=== PATIENT | female | born 1945 | race Caucasian/White ===

== ENCOUNTER → 2016-10-04 | Outpatient (CLI) | payer MEDICARE, MEDICAID ==
[~2016-10-04] MED LIST: ADVAIR 250/5028 PUFF IN; ANTIVERT GENERI25 MG PO; ASPIRIN 81MG TA81 MG PO; BACLOFEN20 MG PO; DONEPEZIL 10MG10 MG PO; ESCITALOPRAM 2020 MG PO; HYDROCHLOROTH12.5 M1 PO; IMODIUM 2MG. CAP2 MG PO; NAMENDA XR28 MG PO; OMEPRAZOLE20 MG PO; POTASSIUM CHLO20 ME2 PO; ROBAXIN-750750 MG PO; TIZANIDINE HCL 44 MG NG; TRAMADOL50 M1 PO
[2016-10-04 19:03] LABS: AEROMONAS NOT DETECTED (NOT DETECTE); CYCLOSPORA CAYETANENSIS NOT DETECTED (NOT DETECTE); E COLI O157 NOT DETECTED (NOT DETECTE); ENTEROAGGREGATIVE E COLI NOT DETECTED (NOT DETECTE); ENTEROPATHOGENIC E COLI NOT DETECTED (NOT DETECTE); ENTEROTOXIGENIC E COLI NOT DETECTED (NOT DETECTE); NOROVIRUS NOT DETECTED (NOT DETECTE); SAPOVIRUS NOT DETECTED (NOT DETECTE); SHIGA-LIKE TOXIN PROD. E COLI NOT DETECTED (NOT DETECTE); SHIGELLA/ENTEROINVASIVE E COLI NOT DETECTED (NOT DETECTE); VIBRIO CHOLERAE NOT DETECTED (NOT DETECTE)
[2016-10-04 22:15] LABS: ASTROVIRUS DETECTED (NOT DETECTE)
== END ==
LOC: LAB 19:01
DX: R19.7 Diarrhea, unspecified (principal)